=== PATIENT | female | born 1950 | race Caucasian/White ===

== ENCOUNTER 2016-08-30 22:57 | Emergency (ER) | payer MEDICARE, OTHER ==
[2016-08-30 21:07] LABS: ASCORBIC ACID (UR NOT ORDER) NEG (NEG); BILIRUBIN, URINE NEGATIVE (NEG); ER URINALYSIS TAT 0 Hrs 15 Mins; KETONE, URINE NEGATIVE (NEG); NITRITE (URINE) NEG (NEG); WBC (NOT ORDERED) (RFLEX) 5 (0-5)
[2016-08-30 21:08] LABS: LEUKOCYTE ESTERASE(NOT OR TRACE (NEG)
[2016-08-30 21:54] LABS: BASOPHILS 0.3 %; BASOPHILS ABSOLUTE 0.01 10/3/uL (0.0-0.16); EOSINOPHILS 0.3 %; EOSINOPHILS ABSOLUTE 0.01 10/3/uL (0.0-0.53); HEMOGLOBIN 10.3 g/dL (12.0-16.0); IMMATURE GRANULOCYTES 0.3 %; LYMPHOCYTES 10.6 %; LYMPHOCYTES ABSOLUTE 0.38 10/3/uL (0.67-4.30); MEAN CORPUS HGB CONC 31.2 g/dL (32.0-36.0); MEAN CORPUSCULAR HEMOGLOB 26.5 pg (26.0-34.0); MEAN CORPUSCULAR VOLUME 85.1 fL (80-100); MEAN PLATELET VOLUME 10.1 fL (9.2-13.0); MONOCYTES 20.3 %; MONOCYTES ABSOLUTE 0.73 10/3/uL (0.21-1.20); NEUTROPHILS 68.2 %; NEUTROPHILS ABSOLUTE 2.46 10/3/uL (2.02-8.40); PLATELET COUNT 134 10/3/uL (150-400); RBC DISTRIBUTION WIDTH 16.4 % (12.0-16.0); RED CELL COUNT 3.88 10/6/uL (4.0-5.6)
[2016-08-30 21:55] LABS: IMMATURE GRANULOCYTES ABSOLUTE 0.01 10/3/uL (0.0-0.11); MANUAL DIFF NO %; WHITE BLOOD CELLS 3.6 10/3/uL (4.5-10.5)
[2016-08-30 22:12] LABS: BAND NEUTROPHILS 3 %; ER DIFF TAT 0 Hrs 21 Mins; LYMPHOCYTES 14 %; MONOCYTES 10 %; MONOCYTES ABSOLUTE (CALC) 0.36 10/3/uL (0.21-1.20); NEUTROPHILS ABSOLUTE (CALC) 2.74 10/3/uL (2.02-8.40); SEGMENTED NEUTROPHIL (0) 73 %; TOTAL NUCLEATED CELLS 100
[2016-08-30 22:13] LABS: A/G RATIO 1.1 (0.7-1.9); ALBUMIN 3.4 G/DL (3.5-5.0); ALKALINE PHOSPHATASE 251 U/L (45-117); BUN (BLOOD UREA NITROGEN) 10 MG/DL (6-23); CALCIUM, SERUM 8.7 MG/DL (8.5-10.4); CHLORIDE, SERUM 104 MMOL/L (96-112); CO2 (CARBON DIOXIDE) 29 MMOL/L (24-34); CREATININE 0.46 MG/DL (0.55-1.02); GFR AFRICAN AMERICAN 119 ML/MIN (>=60); GFR NON AFRICAN AMERICAN 103 ML/MIN (>=60); GLUCOSE, SERUM 111 MG/DL (60-99); POTASSIUM, SERUM 3.8 MMOL/L (3.5-5.3); SGOT(AST) 105 U/L (5-40); SGPT(ALT) 59 U/L (5-65); SODIUM, SERUM 140 MMOL/L (135-148); TOTAL PROTEIN 6.4 G/DL (6.0-8.5)
[2016-08-30 22:15] LABS: PLATELET ESTIMATE SLT DEC (ADEQUATE); RBC MORPHOLOGY NORM (NORMAL)
[~2016-08-30 22:57] MED LIST: ASAB PO; ATIVAN PO; ATV.5 PO; ATV1 PO; BACLOFEN PO; CHEMOTHERAPY IV; COMP10B PO; HYDROCHLOROT25 MG PO; KLOR-CON M2020 MEQ PO; L40 PO; LIOR10 PO; LIQUID TEARS OPH; LOPERAMIDE PO; MIRALAXPKT PO; MOMUD PO; MSCONT60 PO; MSCONTIN PO; NORCO1 TA1 PO; NORCO1 TA2 PO; NORV10 PO; PCET PO; ROXICODONE15 MG PO; SIMETHICONE PO; TRAZ50 PO; VISINE0.05 % OPH; ZOFRAN8 PO
[2016-12-26] MEDS ORDERED: ATV1 PO (16:27)
[2016-12-26] MEDS ORDERED: ZOFRAN8 PO (16:29)
[2016-12-26] MEDS ORDERED: ROXICODONE30 MG PO (16:29)
[2016-12-26] MEDS ORDERED: LOM PO (16:35)
[2016-12-26] MEDS ORDERED: MSCONT60 PO (16:35)
[2016-12-26] MEDS ORDERED: MIRALAX POWDER1 PKT PO (16:36)
[2016-12-26] MEDS ORDERED: BIST PO (16:36)
[2016-12-26] MEDS ORDERED: TEARS PLUS OPH (16:37)
[2016-12-26] MEDS ORDERED: LEVAQUIN5T PO (16:38)
== END 2016-08-30 23:37 | disposition home or self-care (01) ==
LOC: ER 22:57
PROVIDERS: Specialist
DX: R50.9 Fever, unspecified (principal); C25.9 Malignant neoplasm of pancreas, unspecified; Z87.442 Personal history of urinary calculi; I10 Essential (primary) hypertension; Z79.899 Other long term (current) drug therapy; Z79.82 Long term (current) use of aspirin
CPT/HCPCS: 71020; 80053; 81001; 85025; 87040; 99284; A9270-GY